=== PATIENT | male | born 1970 | race Caucasian/White ===

== ENCOUNTER 2018-05-27 06:43 | Outpatient (CLI) | payer MEDICARE, OTHER ==
[~2018-05-27] VITALS: Ht 175.3 cm; Wt 93.3 kg
[~2018-05-27 06:43] MED LIST: COZAAR 25MG25 MG/TAB PO; NORCO 325 MG-51 TAB PO
[2018-05-27] MEDS ORDERED: ASPIRIN 81M81 MG/TA2 PO (07:43)
[2018-05-27] MEDS ORDERED: ZYRTEC 10MG10 MG PO (07:44)
[2018-05-27] MEDS ORDERED: NEURONTIN600 MG/TAB PO (07:44)
[2018-05-27] MEDS ORDERED: PERCOCET 325 MG1 TA2 PO (07:45)
[2018-05-27] MEDS ORDERED: INDERAL 10MG10 MG PO (08:09)
[2018-05-27] MEDS ORDERED: VITAMIN D31000 I1 PO (08:11)
[2018-05-27 08:28] VITALS: BP 113/76; PULSE 20; TEMP 97.6
[2018-05-27 10:13] VITALS: BP 130/91; PULSE 65
== END 2018-05-27 11:01 | disposition home or self-care (01) ==
LOC: COL.CAR 06:43
DX: R55 Syncope and collapse (principal); I10 Essential (primary) hypertension; G47.33 Obstructive sleep apnea (adult) (pediatric); F43.10 Post-traumatic stress disorder, unspecified; G43.909 Migraine, unspecified, not intractable, without status migrainosus; F41.9 Anxiety disorder, unspecified; E78.2 Mixed hyperlipidemia; L98.8 Other specified disorders of the skin and subcutaneous tissue; Z79.82 Long term (current) use of aspirin; Z87.820 Personal history of traumatic brain injury; Z82.61 Family history of arthritis; Z82.3 Family history of stroke; Z80.0 Family history of malignant neoplasm of digestive organs; Z82.49 Family history of ischemic heart disease and other diseases of the circulatory system

== ENCOUNTER → 2018-09-13 | Outpatient (REF) ==
[~2018-09-13] MED LIST changes: +ASPIRIN 81M81 MG/TA2 PO; +INDERAL 10MG10 MG PO; +NEURONTIN600 MG/TAB PO; +PERCOCET 325 MG1 TA2 PO; +VITAMIN D31000 I1 PO; +ZYRTEC 10MG10 MG PO
== END ==
LOC: ZLAB.WCH 11:05
DX: Z01.89 Encounter for other specified special examinations (principal)

== ENCOUNTER 2019-06-21 12:25 | Emergency (ER) | payer MEDICARE, OTHER ==
[~2019-06-21] VITALS: Ht 175.3 cm; Wt 69.1 kg
[2019-06-21 12:30] VITALS: TEMP 98.6
[2019-06-21 13:16] LABS: BASO # 0.1 (0.0-0.2); BASO % 0.8 % (0.0-2.0); EOS # 0.1 (0.0-0.7); EOS % 0.6 % (0-4.0); GRAN # 6.1 (1.4-6.5); GRAN % 54.9 % (42.2-75.2); HEMATOCRIT 54.2 % (42.0-52.0); HEMOGLOBIN 18.9 g/dl (13.5-18.0); LYMPH # 4.2 (1.2-3.4); LYMPH % 37.6 % (20.0-51.0); MEAN CELL VOLUME 84 fl (80.0-100.0); MEAN CORPUSCULAR HEMOGLOBIN 29 pg (27.0-31.0); MEAN CORPUSCULAR HGB CONC 35 g/dl (33.0-37.0); MEAN PLATELET VOLUME 9.3 fl (7.4-10.4); MONO # 0.7 (0.1-0.6); MONO % 5.8 % (1.7-9.3); PLATELET COUNT 245 K/mm3 (130-400); RED BLOOD COUNT 6.42 M/mm3 (4.20-5.60); REDCELL DISTRIBUTION WIDTH-CV 13.1 % (11.5-14.5)
[2019-06-21 13:23] LABS: ALANINE AMINOTRANSFERASE 27 U/L (21-72); ALBUMIN 4.9 gm/dL (3.5-5.0); ALKALINE PHOSPHATASE 115 U/L (50-136); ANION GAP 11 mmol/L (7-16); AST,SGOT 31 U/L (15-37); BILIRUBIN,TOTAL 0.8 mg/dL (0.0-1.0); BLOOD UREA NITROGEN 16 mg/dL (9-20); CALCIUM 10.5 mg/dL (8.4-10.2); CARBON DIOXIDE 22 mmol/L (22-30); CHLORIDE 106 mmol/L (98-107); CREATININE, serum 0.95 (0.66-1.25); GLUCOSE 108 mg/dL (74-106); LIPASE 43 U/L (23-300); POTASSIUM 4.1 mmol/L (3.4-5.0); SODIUM 140 mmol/L (137-145); TOTAL PROTEIN 8.5 gm/dL (6.4-8.2)
[2019-06-21 13:27] LABS: COLLECTION METHOD CLEAN CATCH
[2019-06-21 13:34] LABS: PH 9 (5-8); SQUAMOUS EPITHELIAL None Seen /hpf; URINE APPEARANCE Clear; URINE BACTERIA None Seen /hpf; URINE BILIRUBIN Negative (NEGATIVE); URINE BLOOD Negative (NEGATIVE); URINE COLOR Yellow; URINE GLUCOSE Negative (NEGATIVE); URINE KETONE Negative (NEGATIVE); URINE LEUKOCYTE ESTERASE Negative (NEGATIVE); URINE NITRATE Negative (NEGATIVE); URINE PROTEIN(semi-quant) Negative (NEGATIVE); URINE RBC 0-2 /hpf; URINE UROBILINOGEN Negative (NEGATIVE)
[2019-06-21 13:34] LABS: C-REACTIVE PROTEIN < 0.5 mg/dL (0.0-0.9); TROPONIN-I < 0.012 ng/mL (0.000-0.035)
[2019-06-21 13:39] LABS: PROTHROMBIN TIME 11.7 SECONDS (9.7-12.8)
[2019-06-21 13:42] LABS: PARTIAL THROMBOPLASTIN TIME 32.3 SECONDS (26.0-37.0)
[2019-06-21] MEDS ORDERED: ZOFRAN 4MG T4 MG/TAB PO (16:06)
[2019-06-21] MEDS ORDERED: PRILOTC PO (16:06)
[2019-06-21 16:54] VITALS: BP 115/72; PULSE 80
== END 2019-06-21 16:55 | disposition home or self-care (01) ==
LOC: COL.ER 12:25
PROVIDERS: Emergency Medicine
DX: F41.9 Anxiety disorder, unspecified (principal); F12.90 Cannabis use, unspecified, uncomplicated; Z90.49 Acquired absence of other specified parts of digestive tract; Z79.82 Long term (current) use of aspirin
CPT/HCPCS: C9113; J2060; J7030; Q9967

== ENCOUNTER 2019-08-01 12:20 | Day surgery (SDC) | payer MEDICARE, OTHER ==
[~2019-08-01] VITALS: Ht 175.3 cm; Wt 89.1 kg
[~2019-08-01 12:20] MED LIST changes: +PRILOTC PO; +ZOFRAN 4MG T4 MG/TAB PO
--- NOTE | 2019-08-01 12:35 | NUR ---
PATIENT ADMITED INTO ROOM 324 FROM UROLOGY OFFICE WITH RIGHT KIDNEY STONE. PATIENT REPORTS HE IS HAVING SOME PAIN IN RIGHT FLANK BUT IS MOSTLY C/O NAUSEA AT THIS TIME. 20 GAUGE IV STARTED IN RIGHT HAND. PATIENT GIVEN PRN ZOFRAN. HEAD TO TOE ASSESSMENT COMPLETE. CONSENT ON CHART.
[2019-08-01 13:21] VITALS: BP 126/86; PULSE 72; TEMP 98.8
--- NOTE | 2019-08-01 16:05 | NUR ---
PATIENT GOING DOWN TO OR VIA CART. PRE-OP MEDS GIVEN. CONCENT ON CHART
[2019-08-01 17:57] VITALS: TEMP 97.8
[2019-08-01 18:10] VITALS: BP 123/74; PULSE 89
--- NOTE | 2019-08-01 18:18 | NUR ---
Patient up from OR by cart. Drowsy but arouses to voice. Oriented x 3. Patient ambulated to restroom, stand by assist, steady gait. Post op VSS. Denies pain at this time. Patient voided peach color urine. Tolerating oral intake. Denies further needs at this time. Will continue to monitor
[2019-08-01 18:25] VITALS: BP 122/77; PULSE 83
[2019-08-01 18:40] VITALS: BP 124/82; PULSE 80
[2019-08-01 18:55] VITALS: BP 129/79; PULSE 86
--- NOTE | 2019-08-01 18:56 | NUR ---
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
--- NOTE | 2019-08-01 20:18 | NUR ---
Education and discharge instructions completed with patient and spouse. All questions answered and no concerns at time of discharge. INT to right wrist discontinued. Patient refused wheelchair, so he ambulated with staff. Spouse driving patient home. Scripts for Ferris and Pyridium sent with patient. Time of discharge 2014.
== END 2019-08-01 20:15 | disposition home or self-care (01) ==
LOC: SURG 12:20 → SDCO 12:20 → SURG 12:23 → SDCO 20:15
DX: N13.2 Hydronephrosis with renal and ureteral calculous obstruction (principal); N43.41 Spermatocele of epididymis, single; N28.1 Cyst of kidney, acquired; I49.3 Ventricular premature depolarization; N52.9 Male erectile dysfunction, unspecified; Z98.52 Vasectomy status; N40.0 Benign prostatic hyperplasia without lower urinary tract symptoms; F32.9 Major depressive disorder, single episode, unspecified; Z80.0 Family history of malignant neoplasm of digestive organs; Z80.9 Family history of malignant neoplasm, unspecified
CPT/HCPCS: OP; C1769; C2617; J0690; J1100; J1885; J2250; J2405; J2704; J2765; J3010; J7030; J7120; Q9967

== ENCOUNTER 2019-11-27 18:26 | Emergency (ER) | payer MEDICARE, OTHER ==
[~2019-11-27] VITALS: Ht 175.3 cm; Wt 83.2 kg
[2019-11-27 18:52] LABS: BASO # 0.1 (0.0-0.2); BASO % 0.6 % (0.0-2.0); EOS # 0.1 (0.0-0.7); EOS % 0.8 % (0-4.0); GRAN # 6.5 (1.4-6.5); LYMPH # 4.4 (1.2-3.4); LYMPH % 37.9 % (20.0-51.0); MEAN CELL VOLUME 84 fl (80.0-100.0); MEAN CORPUSCULAR HGB CONC 35 g/dl (33.0-37.0); MEAN PLATELET VOLUME 9.7 fl (7.4-10.4); MONO # 0.6 (0.1-0.6); MONO % 5.4 % (1.7-9.3); PLATELET COUNT 256 K/mm3 (130-400); RED BLOOD COUNT 6.53 M/mm3 (4.20-5.60); REDCELL DISTRIBUTION WIDTH-CV 12.6 % (11.5-14.5)
[2019-11-27 18:53] LABS: INR 1.1 (0.8-3.0); PROTHROMBIN TIME 12.9 SECONDS (9.7-12.8)
[2019-11-27 18:55] LABS: HEMATOCRIT 54.5 % (42.0-52.0); HEMOGLOBIN 19.3 g/dl (13.5-18.0); MEAN CORPUSCULAR HEMOGLOBIN 30 pg (27.0-31.0)
[2019-11-27 18:56] LABS: PARTIAL THROMBOPLASTIN TIME 31.6 SECONDS (26.0-37.0)
[2019-11-27 19:00] LABS: ALANINE AMINOTRANSFERASE 21 U/L (21-72); ALBUMIN 5.1 gm/dL (3.5-5.0); ALKALINE PHOSPHATASE 110 U/L (50-136); ANION GAP 16 mmol/L (7-16); AST,SGOT 42 U/L (15-37); BILIRUBIN,TOTAL 1.5 mg/dL (0.0-1.0); BLOOD UREA NITROGEN 16 mg/dL (9-20); CALCIUM 10.4 mg/dL (8.4-10.2); CARBON DIOXIDE 20 mmol/L (22-30); CHLORIDE 108 mmol/L (98-107); CREATININE, serum 1.12 (0.66-1.25); GLUCOSE 144 mg/dL (74-106); POTASSIUM 3.7 mmol/L (3.4-5.0); SODIUM 144 mmol/L (137-145); TOTAL PROTEIN 8.7 gm/dL (6.4-8.2)
[2019-11-27 19:15] LABS: TROPONIN-I < 0.012 ng/mL (0.000-0.035)
[2019-11-27 20:57] LABS: BASO % 0.5 % (0.0-2.0); EOS # 0.1 (0.0-0.7); EOS % 1.3 % (0-4.0); GRAN % 58.2 % (42.2-75.2); HEMATOCRIT 45.7 % (42.0-52.0); LYMPH # 2.7 (1.2-3.4); LYMPH % 31.4 % (20.0-51.0); MEAN CELL VOLUME 85 fl (80.0-100.0); MEAN CORPUSCULAR HEMOGLOBIN 29 pg (27.0-31.0); MEAN CORPUSCULAR HGB CONC 35 g/dl (33.0-37.0); MEAN PLATELET VOLUME 9.6 fl (7.4-10.4); MONO # 0.7 (0.1-0.6); MONO % 8.3 % (1.7-9.3); PLATELET COUNT 192 K/mm3 (130-400); REDCELL DISTRIBUTION WIDTH-CV 12.5 % (11.5-14.5)
[2019-11-27 20:58] LABS: HEMOGLOBIN 15.9 g/dl (13.5-18.0)
[2019-11-27 22:20] VITALS: BP 131/95; PULSE 79; TEMP 96.2
== END 2019-11-27 22:34 | disposition home or self-care (01) ==
LOC: COL.ER 18:26
PROVIDERS: Family Medicine
DX: F41.9 Anxiety disorder, unspecified (principal); E86.0 Dehydration; Z79.82 Long term (current) use of aspirin
CPT/HCPCS: J2060; J7030

== ENCOUNTER → 2019-12-02 | Outpatient (CLI) | payer MEDICARE, OTHER | LOC: COL.RAD 07:35 | DX: F41.9 Anxiety disorder, unspecified (principal); R10.9 Unspecified abdominal pain; R14.2 Eructation; R14.0 Abdominal distension (gaseous); R06.00 Dyspnea, unspecified; R19.7 Diarrhea, unspecified; R13.10 Dysphagia, unspecified; R07.89 Other chest pain ==

== ENCOUNTER 2024-04-24 12:17 | Emergency (ER) | payer MEDICARE, OTHER ==
[~2024-04-24] VITALS: Ht 175.3 cm; Wt 93.2 kg
[2024-04-24 12:20] VITALS: TEMP 98.5
[2024-04-24] MEDS ORDERED: LORazepam 2 MG/ML 1 ML VIAL IV ONE (13:15)
[2024-04-24] MEDS ORDERED: NS 1,000 ML IV ONE (13:15)
[2024-04-24 13:33] LABS: ALANINE AMINOTRANSFERASE 39 U/L (0-55); ALBUMIN 4.3 g/dL (3.5-5.0); ALKALINE PHOSPHATASE 100 U/L (40-150); ANION GAP 14 mmol/L (7-16); AST,SGOT 29 U/L (5-34); BILIRUBIN,TOTAL 1.4 mg/dL (0.2-1.2); BLOOD UREA NITROGEN 12 mg/dL (8-26); CALCIUM 10.2 mg/dL (8.4-10.2); CHLORIDE 106 mEq/L (98-107); CREATININE, serum 1.15 mg/dL (0.72-1.25); GLUCOSE 94 mg/dL (70-99); POTASSIUM 3.5 mEq/L (3.5-4.5); SODIUM 141 mEq/L (136-145); TOTAL PROTEIN 7.7 g/dl (6.2-8.1)
[2024-04-24 13:35] LABS: BASO # 0.1 K/mm3 (0.0-0.2); BASO % 0.8 % (0.0-2.0); EOS # 0.2 K/mm3 (0.0-0.7); EOS % 1.9 % (0.0-4.0); GRAN # 3.6 K/mm3 (1.4-6.5); GRAN % 46.4 % (42.2-75.2); HEMATOCRIT 50.7 % (42.0-52.0); LYMPH # 3.4 K/mm3 (1.2-3.4); LYMPH % 44.1 % (20.0-51.0); MEAN CELL VOLUME 84 fl (80.0-100.0); MEAN CORPUSCULAR HEMOGLOBIN 30 pg (27-31); MEAN CORPUSCULAR HGB CONC 36 g/dl (33.0-37.0); MEAN PLATELET VOLUME 9.6 fl (7.4-10.4); MONO # 0.5 K/mm3 (0.1-0.6); MONO % 6.5 % (1.7-9.3); PLATELET COUNT 248 K/mm3 (130-400); RED BLOOD COUNT 6.01 M/mm3 (4.20-5.60); REDCELL DISTRIBUTION WIDTH-CV 12.9 % (11.5-14.5)
[2024-04-24] MEDS ORDERED: NS 100 ML IV ONE (13:49)
[2024-04-24] MEDS ORDERED: Iohexol 350 - 100 ML VIAL IV ONE (13:51)
[2024-04-24 13:59] LABS: TROPONIN-I < 0.010 ng/mL (0.00-0.033)
[2024-04-24] MEDS ORDERED: ATARAX 25MG25 MG/TAB PO (16:05)
[2024-04-24 16:20] VITALS: BP 105/70; PULSE 66
== END 2024-04-24 16:20 | disposition home or self-care (01) ==
LOC: COL.ER 12:17
PROVIDERS: Personal Emergency Response Attendant
DX: R07.89 Other chest pain (principal); R20.2 Paresthesia of skin
CPT/HCPCS: J2060; J7030; Q9967